=== PATIENT | male | born 1955 | race Asian ===

== ENCOUNTER 2016-05-10 06:28 | Day surgery (SDC) | payer OTHER ==
[~2016-05-10] VITALS: Ht 175.3 cm; Wt 80.9 kg
[2016-05-10] MEDS ORDERED: SODIUM CHLORIDE 0.9% 1,000 ML IV ONE ×2 (06:41→06:45)
[2016-05-10] MEDS ORDERED: MIDAZOLAM HCL 2 MG/2 ML VIAL ONE (07:21)
[2016-05-10] MEDS ORDERED: FentaNYL CITRATE-PF 100 MCG/2 ML VIAL ONE (07:21)
[2016-05-10] MEDS ORDERED: MethylPREDNISolone SOD SUCC 125 MG/2 ML VIAL IVP ONE (09:00)
[2016-05-10] MEDS ORDERED: MethylPREDNISolone SOD SUCC 125 MG/2 ML VIAL ONE (09:45)
[2016-05-10] MEDS ORDERED: ALBUTEROL SULFATE 2.5 MG/0.5 ML NEB SOLUTION NEB ONE (16:35)
[2016-05-10] MEDS ORDERED: LIDOCAINE HCL 4% 50 ML SOLUTION TP ONE (16:35)
[2016-05-10] MEDS ORDERED: LIDOCAINE HCL 2% 30 ML JELLY TP ONE (16:35)
[2016-05-10] MEDS ORDERED: BENZOCAINE 20% 50 MCG/SPRAY 57 GM TP ONE (16:35)
[2016-05-10] MEDS ORDERED: OXYGEN THERAPY IH SCH (20:00)
== END 2016-05-10 10:30 | disposition home or self-care (01) ==
LOC: SURGERY 06:28
PROVIDERS: ATTEND Internal Medicine Critical Care Medicine
DX: J38.4 Edema of larynx (principal); B37.0 Candidal stomatitis; J45.909 Unspecified asthma, uncomplicated; Z87.891 Personal history of nicotine dependence
CPT/HCPCS: 31623; 31624; 71010; 87015 ×2; 87070; 87101; 87205; 87220; 88108; 88305; 88312; J2250; J2930; J3010; J7030; 87107